=== PATIENT | female | born 1995 | race Two or more races ===

== ENCOUNTER 2022-02-22 23:42 | Emergency (ER) | payer OTHER ==
[~2022-02-22] VITALS: Ht 170.2 cm; Wt 78.9 kg
--- NOTE | 2022-02-22 23:50 | NUR ---
[facility] AND [employer] FOR OTB. PER [employer] PT MIGHT HAVE FAINTED WHILE BOOKING -TRAUMA. PT A/OX4; LOC WNL. TOLERATING R/A WELL WITH NO SOB. CONNECTED PT TO POX AND MONITOR. SAFETY MEASURES IN PLACE.
--- NOTE | 2022-02-23 00:14 | NUR ---
PT SIGNED WAIVER
--- NOTE | 2022-02-23 00:45 | NUR ---
PT TAKEN TO CT VIA [facility]
--- NOTE | 2022-02-23 03:38 | NUR ---
CALLED [facility] FOR READ
--- NOTE | 2022-02-23 03:53 | NUR ---
Patient discharged to custody in stable condition. Written and verbal after care instructions given. Patient verbalizes understanding of instruction. PT ambulatory with a steady gait
[2022-02-23 03:58] VITALS: BP 141/68
== END 2022-02-23 04:02 ==
LOC: ER 23:44
DX: R55 Syncope and collapse (principal); R51.9 Headache, unspecified
CPT/HCPCS: 70450-TC; 71045-TC